=== PATIENT | female | born 1970 | race African-American/Black ===

== ENCOUNTER 2017-11-30 23:59 | Emergency (ER) | payer MEDICAID ==
[~2017-11-30] VITALS: Ht 162.6 cm; Wt 93.3 kg
[2017-12-01 01:25] VITALS: BP 150/94
== END 2017-12-01 01:36 | disposition home or self-care (01) ==
LOC: ER 23:59
DX: H10.10 Acute atopic conjunctivitis, unspecified eye (principal); I10 Essential (primary) hypertension
CPT/HCPCS: 99283